=== PATIENT | female | born 1985 | race Caucasian/White ===

== ENCOUNTER 2020-01-29 05:42 | Inpatient (IN) | payer BC ==
[2020-01-29] MEDS ORDERED: Sodium Chloride 0.9% 2.5 ML Syringe FLUSH PRN (05:45)
[2020-01-29] MEDS ORDERED: Oxytocin/0.9 % Sodium Chloride 30 UNIT/500 ML BAG IV SCH (05:45)
[2020-01-29] MEDS ORDERED: ceFAZolin 2 GM in Premix Bag 1 BAG IV ONE (05:45)
[2020-01-29] MEDS ORDERED: Sodium Chloride 0.9% 10 ML SDV IV PRN (05:45)
[2020-01-29] MEDS ORDERED: Sodium Chloride 0.9% 10 ML Syringe FLUSH PRN (05:45)
[2020-01-29] MEDS ORDERED: Citric Acid/Sodium Citrate Solution 30 ML Cup PO ONE (05:45)
[2020-01-29] MEDS ORDERED: Ondansetron 4 MG Tab.DIS PO PRN (05:45)
[2020-01-29] MEDS: Lactated Ringers 1,000 ML IV SCH ×4 (06:00→15:44)
--- NOTE | 2020-01-29 07:37 | PCM.PREANE ---
Preanesthetic Assessment - Anesthesia/Transfusion/Family Hx Anesthesia History: Prior Anesthesia Without Reaction (1x spinal, 1xepidural with conversion) Family History of Anesthesia Reaction: No Transfusion History: No Prior Transfusion(s) Intubation History: Unknown - Review of Systems General: No Symptoms Pulmonary: No Symptoms Cardiovascular: No Symptoms Gastrointestinal: No Symptoms Neurological: No Symptoms Other: Reports: None - Physical Assessment NPO Status Date: 01/28/20 NPO Status Time: 22:00 Height: 5 ft 3 in Weight: 88.451 kg ASA Class: 2 Mental Status: Alert & Oriented x3 Airway Class: Mallampati = 2 Dentition: Reports: Normal Dentition Thyro-Mental Finger Breadths: 3 Mouth Opening Finger Breadths: 3 ROM/Head Extension: Full Lungs: Clear to Auscultation, Normal Respiratory Effort Cardiovascular: Regular Rate, Regular Rhythm - Lab Values: Laboratory Last Values WBC 9.25 K/uL (4.0-11.0) 01/29/20 06:00 RBC 4.02 M/uL (4.30-5.90) L 01/29/20 06:00 Hgb 12.1 g/dL (12.0-16.0) 01/29/20 06:00 Hct 36.6 % (36.0-46.0) 01/29/20 06:00 MCV 91.0 fL (80.0-98.0) 01/29/20 06:00 MCH 30.1 pg (27.0-32.0) 01/29/20 06:00 MCHC 33.1 g/dL (31.0-37.0) 01/29/20 06:00 RDW Std Deviation 43.6 fl (28.0-62.0) 01/29/20 06:00 RDW Coeff of Maurice 13 % (11.0-15.0) 01/29/20 06:00 Plt Count 177 K/uL (150-400) 01/29/20 06:00 MPV 11.70 fL (7.40-12.00) 01/29/20 06:00 Nucleated RBC % 0.0 /100WBC 01/29/20 06:00 Nucleated RBCs # 0 K/uL 01/29/20 06:00 Blood Type O NEGATIVE 01/29/20 06:00 Antibody Screen NEGATIVE 01/29/20 06:00 - Allergies Allergies/Adverse Reactions: Allergies Allergy/AdvReac Type Severity Reaction Status Date / Time No Known Allergies Allergy Verified 01/23/20 08:13 - Acknowledgements Anesthesia Type Planned: Spinal (with Duramorph) PreAnesthesia Questionnaire HEENT History: Reports: None Cardiovascular History: Reports: None Respiratory History: Reports: None Gastrointestinal History: Reports: None Genitourinary History: Reports: None [employer]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: : 3 Para: 2 LMP (Approximate): Musculoskeletal History: Reports: None Neurological History: Reports: None Psychiatric History: Reports: None Endocrine/Metabolic History: Reports: Obesity/BMI 30+ Hematologic History: Reports: None Immunologic History: Reports: None Oncologic (Cancer) History: Reports: None Dermatologic History: Reports: None - Infectious Disease History Infectious Disease History: Reports: Chicken Pox - Past Surgical History Head Surgeries/Procedures: Reports: None HEENT Surgical History: Reports: None Cardiovascular Surgical History: Reports: None Respiratory Surgical History: Reports: None GI Surgical History: Reports: None Female Surgical History: Reports: Section Endocrine Surgical History: Reports: None Neurological Surgical History: Reports: None Musculoskeletal Surgical History: Reports: None Oncologic Surgical History: Reports: None Dermatological Surgical History: Reports: None - SUBSTANCE USE Tobacco Use Status *Q: Never Tobacco User Second Hand Smoke Exposure: No Recreational Drug Use History: No - HOME MEDS Home Medications: Home Meds Pnv No.95/Ferrous Fum/Folic AC [ Vitamin Tablet] 1 tab PO DAILY 01/23/20 [History] - CURRENT (IN HOUSE) MEDS Current Meds: Current Medications Oxytocin/Sodium Chloride (Oxytocin 30 Unit/500 Ml-Ns) 30 unit in 500 mls @ 250 mls/hr IV TITRATE YEISON Lactated Ringer's (Ringers, Lactated) 1,000 mls @ 500 mls/hr IV BOLUS [facility] Last Admin: 01/29/20 07:23 Dose: 500 mls/hr Documented by: Ondansetron HCl (Zofran Odt) 4 mg PO Q6H PRN PRN Reason: Nausea/Vomiting Sodium Chloride (Saline Flush) 10 ml FLUSH ASDIRECTED PRN PRN Reason: Keep Vein Open Sodium Chloride (Saline Flush) 2.5 ml FLUSH ASDIRECTED PRN PRN Reason: Keep Vein Open Sodium Chloride (Normal Saline) 10 ml IV ASDIRECTED PRN PRN Reason: IV Use Discontinued Medications Citric Acid/Sodium Citrate (Bicitra Solution) 30 ml PO ONETIME ONE Stop: 01/29/20 05:46 Cefazolin Sodium/Dextrose 2 gm (/ Premix) 50 mls @ 100 mls/hr IV ONETIME ONE Stop: 01/29/20 06:14
[2020-01-29] MEDS ORDERED: Morphine PF 10 MG/10 ML SDV ONE (07:40)
--- NOTE | 2020-01-29 07:41 | PCM.PREANE ---
Preanesthetic Assessment - Anesthesia/Transfusion/Family Hx Anesthesia History: Prior Anesthesia Without Reaction Transfusion History: No Prior Transfusion(s) - Physical Assessment Height: 1.6 m Weight: 88.451 kg ASA Class: 2 - Lab Values: Laboratory Last Values WBC 9.25 K/uL (4.0-11.0) 01/29/20 06:00 RBC 4.02 M/uL (4.30-5.90) L 01/29/20 06:00 Hgb 12.1 g/dL (12.0-16.0) 01/29/20 06:00 Hct 36.6 % (36.0-46.0) 01/29/20 06:00 MCV 91.0 fL (80.0-98.0) 01/29/20 06:00 MCH 30.1 pg (27.0-32.0) 01/29/20 06:00 MCHC 33.1 g/dL (31.0-37.0) 01/29/20 06:00 RDW Std Deviation 43.6 fl (28.0-62.0) 01/29/20 06:00 RDW Coeff of Maurice 13 % (11.0-15.0) 01/29/20 06:00 Plt Count 177 K/uL (150-400) 01/29/20 06:00 MPV 11.70 fL (7.40-12.00) 01/29/20 06:00 Nucleated RBC % 0.0 /100WBC 01/29/20 06:00 Nucleated RBCs # 0 K/uL 01/29/20 06:00 Blood Type O NEGATIVE 01/29/20 06:00 Antibody Screen NEGATIVE 01/29/20 06:00 - Allergies Allergies/Adverse Reactions: Allergies Allergy/AdvReac Type Severity Reaction Status Date / Time No Known Allergies Allergy Verified 01/23/20 08:13 - Acknowledgements Anesthesia Type Planned: Spinal Pt an Appropriate Candidate for the Planned Anesthesia: Yes Alternatives and Risks of Anesthesia Discussed w Pt/Guardian: Yes Pt/Guardian Understands and Agrees with Anesthesia Plan: Yes PreAnesthesia Questionnaire HEENT History: Reports: None Cardiovascular History: Reports: None Respiratory History: Reports: None Gastrointestinal History: Reports: None Genitourinary History: Reports: None [employer]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: Musculoskeletal History: Reports: None Neurological History: Reports: None Psychiatric History: Reports: None Endocrine/Metabolic History: Reports: Obesity/BMI 30+ Hematologic History: Reports: None Immunologic History: Reports: None Oncologic (Cancer) History: Reports: None Dermatologic History: Reports: None - Infectious Disease History Infectious Disease History: Reports: Chicken Pox - Past Surgical History Head Surgeries/Procedures: Reports: None HEENT Surgical History: Reports: None Cardiovascular Surgical History: Reports: None Respiratory Surgical History: Reports: None GI Surgical History: Reports: None Female Surgical History: Reports: Section Endocrine Surgical History: Reports: None Neurological Surgical History: Reports: None Musculoskeletal Surgical History: Reports: None Oncologic Surgical History: Reports: None Dermatological Surgical History: Reports: None - SUBSTANCE USE Tobacco Use Status *Q: Never Tobacco User Second Hand Smoke Exposure: No Recreational Drug Use History: No - HOME MEDS Home Medications: Home Meds Pnv No.95/Ferrous Fum/Folic AC [ Vitamin Tablet] 1 tab PO DAILY 01/23/20 [History] - CURRENT (IN HOUSE) MEDS Current Meds: Current Medications Oxytocin/Sodium Chloride (Oxytocin 30 Unit/500 Ml-Ns) 30 unit in 500 mls @ 250 mls/hr IV TITRATE YEISON Lactated Ringer's (Ringers, Lactated) 1,000 mls @ 500 mls/hr IV BOLUS YEISON Last Admin: 01/29/20 07:23 Dose: 500 mls/hr Documented by: Ondansetron HCl (Zofran Odt) 4 mg PO Q6H PRN PRN Reason: Nausea/Vomiting Sodium Chloride (Saline Flush) 10 ml FLUSH ASDIRECTED PRN PRN Reason: Keep Vein Open Sodium Chloride (Saline Flush) 2.5 ml FLUSH ASDIRECTED PRN PRN Reason: Keep Vein Open Sodium Chloride (Normal Saline) 10 ml IV ASDIRECTED PRN PRN Reason: IV Use Discontinued Medications Citric Acid/Sodium Citrate (Bicitra Solution) 30 ml PO ONETIME ONE Stop: 01/29/20 05:46 Cefazolin Sodium/Dextrose 2 gm (/ Premix) 50 mls @ 100 mls/hr IV ONETIME ONE Stop: 01/29/20 06:14
[2020-01-29] MEDS ORDERED: ceFAZolin 1 GM Vial ONE (07:54)
[2020-01-29] MEDS ORDERED: Sodium Chloride 0.9% 20 ML ONE (07:54)
[2020-01-29] MEDS ORDERED: Ondansetron 4 MG/2 ML SDV ONE ×2 (07:55→08:31)
[2020-01-29] MEDS ORDERED: Oxytocin 10 Units/1 ML SDV ONE (07:55)
[2020-01-29] MEDS ORDERED: Dexamethasone 4 MG/ML 5 ML MDV ONE (08:15)
[2020-01-29] MEDS ORDERED: Ketorolac 30 MG/ML SDV ONE (08:15)
[2020-01-29] MEDS ORDERED: ePHEDrine 50 MG/ML SDV ONE (08:26)
[2020-01-29] MEDS ORDERED: Octyl 2-Cyanoacrylate 1 Tube ONE (08:33)
[2020-01-29] MEDS ORDERED: Naloxone 0.4 MG/ML Syringe IVPUSH PRN (08:46)
[2020-01-29] MEDS ORDERED: diphenhydrAMINE 50 MG/ML SDV IVPUSH PRN ×2 (08:46→08:56)
[2020-01-29] MEDS ORDERED: Lanolin 100% Cream 7 GM Tube TOP PRN (08:56)
[2020-01-29] MEDS ORDERED: Ondansetron 4 MG/2 ML SDV IVPUSH PRN (08:56)
[2020-01-29] MEDS ORDERED: Bisacodyl 10 MG Supp RECTAL PRN (08:56)
[2020-01-29] MEDS ORDERED: Methylergonovine 0.2 MG/1 ML Amp IM PRN (08:56)
[2020-01-29] MEDS ORDERED: Tranexamic Acid 1,000 MG in Sodium Chloride 0.9% 100 ML IV PRN (08:56)
[2020-01-29] MEDS ORDERED: Misoprostol 200 MCG Tab RECTAL PRN (08:56)
[2020-01-29] MEDS ORDERED: Oxytocin 10 Units/1 ML SDV IM PRN (08:56)
--- NOTE | 2020-01-29 08:56 | PCM.OPNOTE ---
- General Post-Op/Procedure Note Date of Surgery/Procedure: 01/29/20 Operative Procedure(s): repeat low transverse Findings: liveborn male 8/9 weight 3840 grams, normal pelvis. Pre Op Diagnosis: 39 weeks, prior , declines VTOL Post-Op Diagnosis: Same Anesthesia Technique: Spinal Primary Surgeon: Sulema Casillas Anesthesia Provider: Alba Izaguirre [employer] Teacher: Herminio Rosado Pathology: none Fluid Replacement, Intraop: 2,800 EBL in mLs: 500 Complications: None Known Condition: Good
[2020-01-29] MEDS ORDERED: Oxytocin/Lactated Ringers 30 UNIT/500 ML BAG IV SCH (09:00)
--- NOTE | 2020-01-29 09:25 | PCM.POSTAN ---
POST ANESTHESIA ASSESSMENT - MENTAL STATUS Mental Status: Alert, Oriented - RESPIRATORY Respiratory Status: Respiratory Rate WNL, Airway Patent, O2 Saturation Stable - CARDIOVASCULAR CV Status: Pulse Rate WNL, Blood Pressure Stable - GASTROINTESTINAL GI Status: No Symptoms - PAIN Pain Score: 0 - POST OP HYDRATION Hydration Status: Adequate & Stable - OBSERVATIONS Free Text/Narrative:: T 10 level. The patient has no complaints at this time. There were no apparent anesthetic complications. Discharge to floor per criteria.
[2020-01-29] MEDS: Prenatal Multivitamin and Multimineral with Iron Tab PO SCH (10:01)
[2020-01-29] MEDS: Docusate Sodium 100 MG Cap PO SCH ×2 (10:02→21:10)
[2020-01-29] MEDS: Ketorolac 30 MG/ML SDV IVPUSH SCH ×3 (10:02→21:09)
--- NOTE | 2020-01-29 12:17 | OR ---
SURGEON: Sulema Casillas M.D. DATE OF PROCEDURE: 01/29/2020 PREOPERATIVE DIAGNOSES: A 39 intrauterine , prior delivery, declines vaginal trial of labor. POSTOPERATIVE DIAGNOSES: A 39 intrauterine , prior delivery, declines vaginal trial of labor. PROCEDURE: Repeat low transverse section. PRIMARY SURGEON: Sulema Casillas MD ANESTHESIA: Spinal. ESTIMATED BLOOD LOSS: 500 mL. FLUIDS: 2800 mL of crystalloid. FINDINGS: A liveborn male, score of 8 and 9, weighing 3840 g. Normal-appearing uterus, tubes, and ovaries. COMPLICATIONS: None known. DISPOSITION: Mother and baby are in LDR in good condition. BRIEF HISTORY: This is a 34-year-old female. She presents at 39 6/7 weeks gestation with a prior delivery. She declines vaginal trial of labor, and she has reviewed risks of delivery including risk of bleeding; infection; injury to bowel, bladder, blood vessels, ureters, or other organs; risk of thromboembolic event; and risk of anesthesia. Understanding all these risks, she does desire to proceed. DESCRIPTION OF PROCEDURE: With the patient in left tilt position, under adequate spinal analgesia, the abdomen was prepped with chlorhexidine and draped in the usual fashion for abdominal surgery. SCDs were in place. Herman catheter had been placed and 2 g of Ancef IV had been given. After documentation of adequate analgesia, the prior cicatrix was excised and a transverse curvilinear incision was carried through the subcutaneous tissue to the fascia, which was scored transversely in the midline. The fascial incision was extended laterally using sharp and blunt dissection. The fascia was from the underlying rectus muscle using sharp and blunt dissection. The rectus muscles were in the midline. The peritoneum was elevated with hemostat and incised. A finger was placed into the peritoneal cavity. There were no adhesions anteriorly. The bladder was adhesed fairly high onto the uterus with large blood vessels. Therefore, the visceral peritoneum over the lower uterine segment was incised just above this adhesion to push the bladder down out of the field of dissection. The Hector O retractor was then placed. A transverse curvilinear incision was made over the lower uterine segment with a scalpel. A finger was used to enter the amniotic cavity. Clear fluid was noted. The arm and cord were presenting. They were returned to the uterine cavity. The head was then presenting to the incision and was elevated, and with fundal pressure, the was delivered and bulb suctioned by nose and mouth. After 1 minute, the cord was doubly clamped and cut, and the infant was handed to the nurse in attendance at delivery. The was a liveborn male, score of 8 and 9, weighing 3840 g. Cord blood was collected for cord ABGs as well as routine cord blood sampling. Pitocin was initiated after delivery of the infant to assist with delivery of the placenta, which was delivered with fundal pressure. The cervix was opened with ring forceps. The uterus was cleaned with a dry laparotomy tape. The uterine incision was closed with a running lock suture of 0 Polysorb followed by an imbricating layer of 0 Polysorb. Two additional [id number] sutures were placed for complete hemostasis. Tubes and ovaries were inspected. The posterior cul-de-sac, paracolic gutters were cleaned with a wet laparotomy tape and the uterine incision was again inspected, it remained hemostatic. Therefore, the rectus muscle and peritoneum were loosely approximated in the midline using a running mattress suture of 0 Polysorb and the posterior aspect of the fascia was inspected and was hemostatic. The fascial incision was closed with running suture of 0 Polysorb. Subcutaneous tissue was irrigated. Any areas of bleeding that were noted were cauterized. Skin was closed with running subcuticular suture of 3-0 Monocryl and Dermabond. Final sponge, needle, and instrument counts were reported as correct. There were no known complications. Mother and baby remained in LDR and in good condition. DARYL / CAPRICE /[id number]
[2020-01-30] MEDS: Ketorolac 30 MG/ML SDV IVPUSH SCH ×2 (03:40→09:25)
--- NOTE | 2020-01-30 09:06 | PCM48HPAN ---
Post Anesthesia Note - EVALUATION WITHIN 48HRS OF ANESTHETIC Vital Signs in Normal Range: Yes Patient Participated in Evaluation: Yes Respiratory Function Stable: Yes Airway Patent: Yes Cardiovascular Function Stable: Yes Hydration Status Stable: Yes Pain Control Satisfactory: Yes Nausea and Vomiting Control Satisfactory: Yes Mental Status Recovered: Yes Vital Signs: Last Vital Signs Temp 36.4 C 01/30/20 03:20 Pulse 76 01/30/20 07:00 Resp 15 01/30/20 07:00 BP 122/74 01/30/20 03:20 Pulse Ox 97 01/30/20 07:00 - COMMENTS/OBSERVATIONS Free Text/Narrative:: ambulating without difficulty, reports full return of strength and sensation to BLE. Denies nausea, reports adequate analgesia with pain 4-5/10.
[2020-01-30] MEDS: Docusate Sodium 100 MG Cap PO SCH ×3 (09:24→22:27)
--- NOTE | 2020-01-30 10:18 | PCM.PNPP ---
- General Info Date of Service: 01/30/20 Functional Status: Reports: Pain Controlled, Tolerating Diet, Ambulating, Urinating, Other - Review of Systems General: Reports: No Symptoms HEENT: Reports: No Symptoms Pulmonary: Reports: No Symptoms Cardiovascular: Reports: No Symptoms Gastrointestinal: Reports: No Symptoms Genitourinary: Reports: No Symptoms Musculoskeletal: Reports: No Symptoms Skin: Reports: No Symptoms Neurological: Reports: No Symptoms Psychiatric: Reports: No Symptoms - Patient Data Vital Signs - Most Recent: Last Vital Signs Temp 36.7 C 01/30/20 08:00 Pulse 89 01/30/20 09:00 Resp 18 01/30/20 09:00 BP 115/73 01/30/20 08:00 Pulse Ox 93 L 01/30/20 09:00 Weight - Most Recent: 88.451 kg I&O - Last 24 Hours: Intake & Output 01/29/20 01/30/20 01/30/20 22:59 06:59 14:59 Intake Total 2350 2000 Output Total 840 2900 Balance 1510 -900 Lab Results - Last 24 Hours: Laboratory Results - last 24 hr 01/29/20 01/30/20 Range/Units 09:30 05:34 Hgb 9.4 L (12.0-16.0) g/dL Hct 28.6 L (36.0-46.0) % Screen NEGATIVE (NEGATIVE) RhIG Candidate? YES Rhogam Indicated YES, BABY RH POS H Med Orders - Current: Current Medications Bisacodyl (Dulcolax) 10 mg RECTAL ONETIME PRN PRN Reason: Constipation Diphenhydramine HCl (Benadryl) 25 mg IVPUSH Q6H PRN PRN Reason: Itching or Nausea Docusate Sodium (Colace) 100 mg PO BID [facility] Last Admin: 01/30/20 09:24 Dose: 100 mg Documented by: Emollient Ointment (Lansinoh Hpa) 0 gm TOP ASDIRECTED PRN PRN Reason: Sore Nipples Oxytocin/Sodium Chloride (Oxytocin 30 Unit/500 Ml-Ns) 30 unit in 500 mls @ 250 mls/hr IV TITRATE YEISON Lactated Ringer's (Ringers, Lactated) 1,000 mls @ 500 mls/hr IV BOLUS [facility] Last Infusion: 01/29/20 19:30 Dose: Infused Documented by: Lactated Ringer's (Ringers, Lactated) 1,000 mls @ 125 mls/hr IV ASDIRECTED [facility] Last Admin: 01/29/20 15:44 Dose: 125 mls/hr Documented by: Oxytocin/Lactated Ringer's (Pitocin In Lr 30 Units/500 Ml) 30 unit in 500 mls @ 999 mls/hr IV TITRATE YEISON; Protocol Tranexamic Acid 1,000 mg/ (Sodium Chloride) 110 mls @ 660 mls/hr IV ONETIME PRN PRN Reason: Bleeding Ibuprofen (Motrin) 800 mg PO Q8H PRN PRN Reason: mild pain or fever Methylergonovine Maleate (Methergine) 0.2 mg IM ONETIME PRN PRN Reason: Excessive Vaginal Bleeding Misoprostol (Cytotec) 1,000 mcg RECTAL ONETIME PRN PRN Reason: excessive bleeding Ondansetron HCl (Zofran Odt) 4 mg PO Q6H PRN PRN Reason: Nausea/Vomiting Ondansetron HCl (Zofran) 4 mg IVPUSH Q4H PRN PRN Reason: Nausea/Vomiting Oxycodone/Acetaminophen (Percocet 325-5 Mg) 1 tab PO Q4H PRN PRN Reason: Pain (moderate 4-6) Oxycodone/Acetaminophen (Percocet 325-5 Mg) 2 tab PO Q4H PRN PRN Reason: Pain (moderate 4-6) Oxytocin (Pitocin) 10 unit IM ASDIRECTED PRN PRN Reason: Excessive Vaginal Bleeding Prenat Multivit/Kupreanof/Iron/Folic Ac ( Mtr) 1 each PO DAILY [facility] Last Admin: 01/29/20 10:01 Dose: Not Given Documented by: Sodium Chloride (Saline Flush) 10 ml FLUSH ASDIRECTED PRN PRN Reason: Keep Vein Open Sodium Chloride (Saline Flush) 2.5 ml FLUSH ASDIRECTED PRN PRN Reason: Keep Vein Open Sodium Chloride (Normal Saline) 10 ml IV ASDIRECTED PRN PRN Reason: IV Use Discontinued Medications Cefazolin Sodium (Ancef) Confirm Administered Dose 2 gm .ROUTE .STK-MED ONE Stop: 01/29/20 07:55 Citric Acid/Sodium Citrate (Bicitra Solution) 30 ml PO ONETIME ONE Stop: 01/29/20 05:46 Last Admin: 01/29/20 09:01 Dose: Not Given Documented by: Dexamethasone (Dexamethasone) Confirm Administered Dose 20 mg .ROUTE .STK-MED ONE Stop: 01/29/20 08:16 Diphenhydramine HCl (Benadryl) 25 mg IVPUSH Q4H PRN PRN Reason: Itching Stop: 01/30/20 08:47 Last Admin: 01/30/20 01:10 Dose: 25 mg Documented by: Ephedrine Sulfate (Ephedrine Sulfate) Confirm Administered Dose 50 mg .ROUTE .STK-MED ONE Stop: 01/29/20 08:27 Cefazolin Sodium/Dextrose 2 gm (/ Premix) 50 mls @ 100 mls/hr IV ONETIME ONE Stop: 01/29/20 06:14 Last Admin: 01/29/20 09:01 Dose: Not Given Documented by: Sodium Chloride (Normal Saline) Confirm Administered Dose 20 mls @ as directed .ROUTE .STK-MED ONE Stop: 01/29/20 07:55 Ketorolac Tromethamine (Toradol) Confirm Administered Dose 30 mg .ROUTE .STK-MED ONE Stop: 01/29/20 08:16 Ketorolac Tromethamine (Toradol) 30 mg IVPUSH Q6H YEISON Stop: 01/30/20 09:01 Last Admin: 01/30/20 09:25 Dose: 30 mg Documented by: Morphine Sulfate (Duramorph Pf) Confirm Administered Dose 10 mg .ROUTE .STK-MED ONE Stop: 01/29/20 07:41 Naloxone HCl (Narcan) 0.1 mg IVPUSH ONETIME PRN PRN Reason: Respiratory Depression Stop: 01/30/20 08:47 Octyl Cyanoacrylate (Dermabond Advance) Confirm Administered Dose 1 applic .ROUTE .STK-MED ONE Stop: 01/29/20 08:34 Ondansetron HCl (Zofran) Confirm Administered Dose 4 mg .ROUTE .STK-MED ONE Stop: 01/29/20 07:56 Ondansetron HCl (Zofran) Confirm Administered Dose 4 mg .ROUTE .STK-MED ONE Stop: 01/29/20 08:32 Oxytocin (Pitocin) Confirm Administered Dose 30 unit .ROUTE .STK-MED ONE Stop: 01/29/20 07:56 - Interaction Infant Disposition, : in Room with Family Interaction: Holding Infant Feeding: Breastfed ; Nursed Well Support Person: - Recovery Exam Fundal Tone: Firm Fundal Level: At Umbilicus Fundal Placement: Midline Lochia Amount: Scant Lochia Color: Rubra/Red Episiotomy/Laceration: None Urinary Elimination: Indwelling Catheter - Exam General: Alert Neck: Supple Lungs: Normal Respiratory Effort GI/Abdominal Exam: Soft, Non-Tender Extremities: Non-Tender, No Pedal Edema, Normal Capillary Refill Skin: Warm, Dry, Intact Wound/Incisions: Dressing Dry and Intact Neurological: No New Focal Deficit - Problem List & Annotations (1) delivery delivered SNOMED Code(s): 342898635 Code(s): O82 - ENCOUNTER FOR DELIVERY WITHOUT INDICATION Status: Acute Current Visit: Yes (2) Maternal care for scar from previous delivery SNOMED Code(s): 116782602, 889378908 Code(s): O34.219 - MATERNAL CARE FOR UNSP TYPE SCAR FROM PREVIOUS DEL Status: Acute Current Visit: Yes Qualifiers: Previous scar type: low transverse Qualified Code(s): O34.211 - Maternal care for low transverse scar from previous delivery - Problem List Review Problem List Initiated/Reviewed/Updated: Yes - My Orders Last 24 Hours: My Active Orders 01/29/20 09:30 SCREEN [BBK] Routine RH IMMUNE GLOBULIN [BBK] Routine RHOGAM, [RHIG WORKUP, ] [BBK] Routine 01/29/20 Lunch Regular Diet [DIET] - Assessment Assessment:: POD#1 after repeat low transverse , stable, minimal lochia, tolerating diet. - Plan Plan:: Continue postop care
[2020-01-30] MEDS: Acetaminophen/oxyCODONE 325-5 MG Tab PO PRN ×2 (15:01→19:45)
[2020-01-30] MEDS: Prenatal Multivitamin and Multimineral with Iron Tab PO SCH ×2 (15:03→16:30)
[2020-01-30] MEDS: Ibuprofen 800 MG Tab PO PRN (19:46)
[2020-01-31] MEDS: Acetaminophen/oxyCODONE 325-5 MG Tab PO PRN ×5 (01:12→19:25)
[2020-01-31] MEDS: Ibuprofen 800 MG Tab PO PRN ×3 (05:12→23:05)
--- NOTE | 2020-01-31 07:47 | PCM.PNPP ---
- General Info Date of Service: 01/31/20 Functional Status: Reports: Pain Controlled, Tolerating Diet, Ambulating, Urinating - Review of Systems General: Reports: No Symptoms HEENT: Reports: No Symptoms Pulmonary: Reports: No Symptoms Cardiovascular: Reports: No Symptoms Gastrointestinal: Reports: No Symptoms Genitourinary: Reports: No Symptoms Musculoskeletal: Reports: No Symptoms Skin: Reports: No Symptoms Neurological: Reports: No Symptoms Psychiatric: Reports: No Symptoms - General Info Date of Service: 01/31/20 - Patient Data Vital Signs - Most Recent: Last Vital Signs Temp 35.9 C L 01/31/20 07:31 Pulse 72 01/31/20 07:31 Resp 20 01/31/20 07:31 BP 115/66 01/31/20 07:31 Pulse Ox 96 01/31/20 07:31 Weight - Most Recent: 88.451 kg I&O - Last 24 Hours: Intake & Output 01/30/20 01/31/20 01/31/20 22:59 06:59 14:59 Output Total 900 Balance -900 Med Orders - Current: Current Medications Bisacodyl (Dulcolax) 10 mg RECTAL ONETIME PRN PRN Reason: Constipation Diphenhydramine HCl (Benadryl) 25 mg IVPUSH Q6H PRN PRN Reason: Itching or Nausea Docusate Sodium (Colace) 100 mg PO BID [facility] Last Admin: 01/30/20 22:27 Dose: Not Given Documented by: Emollient Ointment (Lansinoh Hpa) 0 gm TOP ASDIRECTED PRN PRN Reason: Sore Nipples Oxytocin/Sodium Chloride (Oxytocin 30 Unit/500 Ml-Ns) 30 unit in 500 mls @ 250 mls/hr IV TITRATE YEISON Lactated Ringer's (Ringers, Lactated) 1,000 mls @ 500 mls/hr IV BOLUS [facility] Last Infusion: 01/29/20 19:30 Dose: Infused Documented by: Lactated Ringer's (Ringers, Lactated) 1,000 mls @ 125 mls/hr IV ASDIRECTED [facility] Last Admin: 01/29/20 15:44 Dose: 125 mls/hr Documented by: Oxytocin/Lactated Ringer's (Pitocin In Lr 30 Units/500 Ml) 30 unit in 500 mls @ 999 mls/hr IV TITRATE YEISON; Protocol Tranexamic Acid 1,000 mg/ (Sodium Chloride) 110 mls @ 660 mls/hr IV ONETIME PRN PRN Reason: Bleeding Ibuprofen (Motrin) 800 mg PO Q8H PRN PRN Reason: mild pain or fever Last Admin: 01/31/20 05:12 Dose: 800 mg Documented by: Methylergonovine Maleate (Methergine) 0.2 mg IM ONETIME PRN PRN Reason: Excessive Vaginal Bleeding Misoprostol (Cytotec) 1,000 mcg RECTAL ONETIME PRN PRN Reason: excessive bleeding Ondansetron HCl (Zofran Odt) 4 mg PO Q6H PRN PRN Reason: Nausea/Vomiting Ondansetron HCl (Zofran) 4 mg IVPUSH Q4H PRN PRN Reason: Nausea/Vomiting Oxycodone/Acetaminophen (Percocet 325-5 Mg) 1 tab PO Q4H PRN PRN Reason: Pain (moderate 4-6) Last Admin: 01/31/20 05:11 Dose: 1 tab Documented by: Oxycodone/Acetaminophen (Percocet 325-5 Mg) 2 tab PO Q4H PRN PRN Reason: Pain (moderate 4-6) Last Admin: 01/31/20 01:12 Dose: 2 tab Documented by: Oxytocin (Pitocin) 10 unit IM ASDIRECTED PRN PRN Reason: Excessive Vaginal Bleeding Prenat Multivit/[place]/Iron/Folic Ac ( Mtr) 1 each PO DAILY [facility] Last Admin: 01/30/20 15:03 Dose: 1 each Documented by: Sodium Chloride (Saline Flush) 10 ml FLUSH ASDIRECTED PRN PRN Reason: Keep Vein Open Sodium Chloride (Saline Flush) 2.5 ml FLUSH ASDIRECTED PRN PRN Reason: Keep Vein Open Sodium Chloride (Normal Saline) 10 ml IV ASDIRECTED PRN PRN Reason: IV Use Discontinued Medications Cefazolin Sodium (Ancef) Confirm Administered Dose 2 gm .ROUTE .STK-MED ONE Stop: 01/29/20 07:55 Citric Acid/Sodium Citrate (Bicitra Solution) 30 ml PO ONETIME ONE Stop: 01/29/20 05:46 Last Admin: 01/29/20 09:01 Dose: Not Given Documented by: Dexamethasone (Dexamethasone) Confirm Administered Dose 20 mg .ROUTE .STK-MED ONE Stop: 01/29/20 08:16 Diphenhydramine HCl (Benadryl) 25 mg IVPUSH Q4H PRN PRN Reason: Itching Stop: 01/30/20 08:47 Last Admin: 01/30/20 01:10 Dose: 25 mg Documented by: Ephedrine Sulfate (Ephedrine Sulfate) Confirm Administered Dose 50 mg .ROUTE .STK-MED ONE Stop: 01/29/20 08:27 Cefazolin Sodium/Dextrose 2 gm (/ Premix) 50 mls @ 100 mls/hr IV ONETIME ONE Stop: 01/29/20 06:14 Last Admin: 01/29/20 09:01 Dose: Not Given Documented by: Sodium Chloride (Normal Saline) Confirm Administered Dose 20 mls @ as directed .ROUTE .ST-MED ONE Stop: 01/29/20 07:55 Ketorolac Tromethamine (Toradol) Confirm Administered Dose 30 mg .ROUTE .ST-MED ONE Stop: 01/29/20 08:16 Ketorolac Tromethamine (Toradol) 30 mg IVPUSH Q6H [facility] Stop: 01/30/20 09:01 Last Admin: 01/30/20 09:25 Dose: 30 mg Documented by: Morphine Sulfate (Duramorph Pf) Confirm Administered Dose 10 mg .ROUTE .ST-MED ONE Stop: 01/29/20 07:41 Naloxone HCl (Narcan) 0.1 mg IVPUSH ONETIME PRN PRN Reason: Respiratory Depression Stop: 01/30/20 08:47 Octyl Cyanoacrylate (Dermabond Advance) Confirm Administered Dose 1 applic .ROUTE .ST-MED ONE Stop: 01/29/20 08:34 Last Admin: 01/30/20 22:25 Dose: Not Given Documented by: Ondansetron HCl (Zofran) Confirm Administered Dose 4 mg .ROUTE .STK-MED ONE Stop: 01/29/20 07:56 Ondansetron HCl (Zofran) Confirm Administered Dose 4 mg .ROUTE .STK-MED ONE Stop: 01/29/20 08:32 Oxytocin (Pitocin) Confirm Administered Dose 30 unit .ROUTE .STK-MED ONE Stop: 01/29/20 07:56 Prenat Multivit/Pottery Machine [employer]/Iron/Folic Ac ( Mtr) 1 each PO DAILY [facility] Last Admin: 01/30/20 16:30 Dose: Not Given Documented by: - Interaction Infant Disposition, : [place] in Room with Family Infant Interaction: Holding Infant Feeding: Breastfed ; Nursed Well Support Person: - Recovery Exam Fundal Tone: Firm Fundal Level: 1 Fingerbreadths Below Umbilicus Fundal Placement: Midline Lochia Amount: Scant Lochia Color: Rubra/Red Perineum Description: Intact, Minimal Bruising/Swelling Episiotomy/Laceration: None Bladder Status: Voiding Urinary Elimination: Indwelling Catheter - Exam General: Alert, Oriented Neck: Supple Lungs: Normal Respiratory Effort GI/Abdominal Exam: Soft, Non-Tender, No Distention Extremities: Non-Tender, No Pedal Edema, Normal Capillary Refill Wound/Incisions: Healing Well Neurological: No New Focal Deficit Psy/Mental Status: Alert, Normal Affect, Normal Mood - Problem List & Annotations (1) delivery delivered SNOMED Code(s): 618382231 Code(s): O82 - ENCOUNTER FOR DELIVERY WITHOUT INDICATION Status: Acute Current Visit: Yes (2) Maternal care for scar from previous delivery SNOMED Code(s): 439213033, 661888561 Code(s): O34.219 - MATERNAL CARE FOR UNSP TYPE SCAR FROM PREVIOUS DEL Status: Acute Current Visit: Yes Qualifiers: Previous scar type: low transverse Qualified Code(s): O34.211 - Maternal care for low transverse scar from previous delivery - Problem List Review Problem List Initiated/Reviewed/Updated: Yes - My Orders Last 24 Hours: My Active Orders 01/30/20 13:45 Vit/FA/Fe Fumarate/Se [ MTR] 1 each PO DAILY - Assessment Assessment:: POD#2 after repeat low transverse , stable, minimal lochia, tolerating diet. is going well. - Plan Plan:: Continue care, anticipate discharge tomorrow.
[2020-01-31] MEDS: Prenatal Multivitamin and Multimineral with Iron Tab PO SCH (08:48)
[2020-01-31] MEDS: Docusate Sodium 100 MG Cap PO SCH ×2 (08:48→21:29)
[2020-02-01] MEDS: Acetaminophen/oxyCODONE 325-5 MG Tab PO PRN ×2 (00:20→09:02)
--- NOTE | 2020-02-01 08:43 | PCM.PNPP ---
- General Info Date of Service: 02/01/20 Functional Status: Reports: Pain Controlled, Tolerating Diet, Ambulating, Urinating, Other (had bowel movement) - Review of Systems General: Reports: No Symptoms HEENT: Reports: No Symptoms Pulmonary: Reports: No Symptoms Cardiovascular: Reports: No Symptoms Gastrointestinal: Reports: No Symptoms Genitourinary: Reports: No Symptoms Musculoskeletal: Reports: No Symptoms Skin: Reports: No Symptoms Neurological: Reports: No Symptoms Psychiatric: Reports: No Symptoms - General Info Date of Service: 02/01/20 - Patient Data Vital Signs - Most Recent: Last Vital Signs Temp 36.4 C 02/01/20 04:00 Pulse 75 02/01/20 04:00 Resp 20 02/01/20 04:00 BP 120/78 02/01/20 04:00 Pulse Ox 99 02/01/20 04:00 Weight - Most Recent: 88.451 kg Lab Results - Last 24 Hours: Laboratory Results - last 24 hr 01/29/20 01/29/20 Range/Units 06:00 09:30 RPR Non-Reac (Non-Reac) Screen NEGATIVE (NEGATIVE) RhIG Candidate? YES Rhogam Indicated YES, BABY RH POS H Med Orders - Current: Current Medications Bisacodyl (Dulcolax) 10 mg RECTAL ONETIME PRN PRN Reason: Constipation Diphenhydramine HCl (Benadryl) 25 mg IVPUSH Q6H PRN PRN Reason: Itching or Nausea Docusate Sodium (Colace) 100 mg PO BID [facility] Last Admin: 01/31/20 21:29 Dose: 100 mg Documented by: Emollient Ointment (Lansinoh Hpa) 0 gm TOP ASDIRECTED PRN PRN Reason: Sore Nipples Oxytocin/Sodium Chloride (Oxytocin 30 Unit/500 Ml-Ns) 30 unit in 500 mls @ 250 mls/hr IV TITRATE YE[facility] Lactated Ringer's (Ringers, Lactated) 1,000 mls @ 500 mls/hr IV BOLUS [facility] Last Infusion: 01/29/20 19:30 Dose: Infused Documented by: Lactated Ringer's (Ringers, Lactated) 1,000 mls @ 125 mls/hr IV ASDIRECTED [facility] Last Admin: 01/29/20 15:44 Dose: 125 mls/hr Documented by: Oxytocin/Lactated Ringer's (Pitocin In Lr 30 Units/500 Ml) 30 unit in 500 mls @ 999 mls/hr IV TITRATE YEISON; Protocol Tranexamic Acid 1,000 mg/ (Sodium Chloride) 110 mls @ 660 mls/hr IV ONETIME PRN PRN Reason: Bleeding Ibuprofen (Motrin) 800 mg PO Q8H PRN PRN Reason: mild pain or fever Last Admin: 01/31/20 23:05 Dose: 800 mg Documented by: Methylergonovine Maleate (Methergine) 0.2 mg IM ONETIME PRN PRN Reason: Excessive Vaginal Bleeding Misoprostol (Cytotec) 1,000 mcg RECTAL ONETIME PRN PRN Reason: excessive bleeding Ondansetron HCl (Zofran Odt) 4 mg PO Q6H PRN PRN Reason: Nausea/Vomiting Ondansetron HCl (Zofran) 4 mg IVPUSH Q4H PRN PRN Reason: Nausea/Vomiting Oxycodone/Acetaminophen (Percocet 325-5 Mg) 1 tab PO Q4H PRN PRN Reason: Pain (moderate 4-6) Last Admin: 02/01/20 00:20 Dose: 1 tab Documented by: Oxycodone/Acetaminophen (Percocet 325-5 Mg) 2 tab PO Q4H PRN PRN Reason: Pain (moderate 4-6) Last Admin: 01/31/20 19:25 Dose: 2 tab Documented by: Oxytocin (Pitocin) 10 unit IM ASDIRECTED PRN PRN Reason: Excessive Vaginal Bleeding Prenat Multivit/[place]/Iron/Folic Ac ( Mtr) 1 each PO DAILY [facility] Last Admin: 01/31/20 08:48 Dose: 1 each Documented by: Sodium Chloride (Saline Flush) 10 ml FLUSH ASDIRECTED PRN PRN Reason: Keep Vein Open Sodium Chloride (Saline Flush) 2.5 ml FLUSH ASDIRECTED PRN PRN Reason: Keep Vein Open Sodium Chloride (Normal Saline) 10 ml IV ASDIRECTED PRN PRN Reason: IV Use Discontinued Medications Cefazolin Sodium (Ancef) Confirm Administered Dose 2 gm .ROUTE .STK-MED ONE Stop: 01/29/20 07:55 Citric Acid/Sodium Citrate (Bicitra Solution) 30 ml PO ONETIME ONE Stop: 01/29/20 05:46 Last Admin: 01/29/20 09:01 Dose: Not Given Documented by: Dexamethasone (Dexamethasone) Confirm Administered Dose 20 mg .ROUTE .STK-MED ONE Stop: 01/29/20 08:16 Diphenhydramine HCl (Benadryl) 25 mg IVPUSH Q4H PRN PRN Reason: Itching Stop: 01/30/20 08:47 Last Admin: 01/30/20 01:10 Dose: 25 mg Documented by: Ephedrine Sulfate (Ephedrine Sulfate) Confirm Administered Dose 50 mg .ROUTE .STK-MED ONE Stop: 01/29/20 08:27 Cefazolin Sodium/Dextrose 2 gm (/ Premix) 50 mls @ 100 mls/hr IV ONETIME ONE Stop: 01/29/20 06:14 Last Admin: 01/29/20 09:01 Dose: Not Given Documented by: Sodium Chloride (Normal Saline) Confirm Administered Dose 20 mls @ as directed .ROUTE .STK-MED ONE Stop: 01/29/20 07:55 Ketorolac Tromethamine (Toradol) Confirm Administered Dose 30 mg .ROUTE .STK-MED ONE Stop: 01/29/20 08:16 Ketorolac Tromethamine (Toradol) 30 mg IVPUSH Q6H [facility] Stop: 01/30/20 09:01 Last Admin: 01/30/20 09:25 Dose: 30 mg Documented by: Morphine Sulfate (Duramorph Pf) Confirm Administered Dose 10 mg .ROUTE .STK-MED ONE Stop: 01/29/20 07:41 Naloxone HCl (Narcan) 0.1 mg IVPUSH ONETIME PRN PRN Reason: Respiratory Depression Stop: 01/30/20 08:47 Octyl Cyanoacrylate (Dermabond Advance) Confirm Administered Dose 1 applic .ROUTE .STK-MED ONE Stop: 01/29/20 08:34 Last Admin: 01/30/20 22:25 Dose: Not Given Documented by: Ondansetron HCl (Zofran) Confirm Administered Dose 4 mg .ROUTE .STK-MED ONE Stop: 01/29/20 07:56 Ondansetron HCl (Zofran) Confirm Administered Dose 4 mg .ROUTE .STK-MED ONE Stop: 01/29/20 08:32 Oxytocin (Pitocin) Confirm Administered Dose 30 unit .ROUTE .STK-MED ONE Stop: 01/29/20 07:56 Prenat Multivit/[employer]/Iron/Folic Ac ( Mtr) 1 each PO DAILY [facility] Last Admin: 01/30/20 16:30 Dose: Not Given Documented by: - Infant Interaction Infant Disposition, : in Room with Family Infant Interaction: Holding Feeding: Breastfed Infant; Nursed Well Support Person: - Recovery Exam Fundal Tone: Firm Fundal Level: 2 Fingerbreadths Below Umbilicus Fundal Placement: Midline Lochia Amount: Scant Lochia Color: Rubra/Red Perineum Description: Intact, Minimal Bruising/Swelling Episiotomy/Laceration: None Bladder Status: Voiding Urinary Elimination: Voided - Exam General: Alert, Oriented Lungs: Normal Respiratory Effort GI/Abdominal Exam: Soft, Non-Tender, No Distention Extremities: Normal Inspection, Non-Tender, No Pedal Edema Skin: Warm, Dry, Intact Wound/Incisions: Healing Well (small area of bruising inferior to incision) Psy/Mental Status: Alert, Normal Affect, Normal Mood - Problem List & Annotations (1) delivery delivered SNOMED Code(s): 295398603 Code(s): O82 - ENCOUNTER FOR DELIVERY WITHOUT INDICATION Status: Acute Current Visit: Yes (2) Maternal care for scar from previous delivery SNOMED Code(s): 977795301, 523359994 Code(s): O34.219 - MATERNAL CARE FOR UNSP TYPE SCAR FROM PREVIOUS DEL Status: Acute Current Visit: Yes Qualifiers: Previous scar type: low transverse Qualified Code(s): O34.211 - Maternal care for low transverse scar from previous delivery - Problem List Review Problem List Initiated/Reviewed/Updated: Yes - Assessment Assessment:: POD#3 after repeat low transverse , stable, minimal lochia, tolerating diet. is going well. Had bowel movement, would like to be discharged today. - Plan Plan:: Discharge instructions reviewed.
[2020-02-01] MEDS: Docusate Sodium 100 MG Cap PO SCH (08:58)
[2020-02-01] MEDS: Prenatal Multivitamin and Multimineral with Iron Tab PO SCH (08:58)
[2020-02-01] MEDS: Ibuprofen 800 MG Tab PO PRN (09:02)
[2020-02-01 09:58] VITALS: BP 118/66; PULSE 82
== END 2020-02-01 12:03 | disposition home or self-care (01) | DRG 540 ==
LOC: MW.OB 05:42
PROVIDERS: ADMIT Obstetrics & Gynecology; ATTEND Obstetrics & Gynecology
PROC: 10D00Z1 Extraction of Products of Conception, Low, Open Approach (ICD-10-PCS; principal; 2020-01-29)
PROC: 3E0234Z Introduction of Serum, Toxoid and Vaccine into Muscle, Percutaneous Approach (ICD-10-PCS; 2020-01-31)
DX: O34.211 Maternal care for low transverse scar from previous cesarean delivery (principal); Z37.0 Single live birth; Z3A.39 39 weeks gestation of pregnancy; O26.893 Other specified pregnancy related conditions, third trimester; Z67.41 Type O blood, Rh negative
CPT/HCPCS: 01961; 36415; 59025; 82803; 85014; 85018; 85027; 85460; 86592; 86850; 86900; 86901; A9270-GY; J0690; J1100; J1200; J1885; J2270; J2405; J2590; J2792; J7120

== ENCOUNTER 2020-09-21 10:54 | Emergency (ER) | payer BC ==
--- NOTE | 2020-09-21 11:53 | EDM.PDOC ---
ED HPI GENERAL MEDICAL PROBLEM - General Chief Complaint: Skin Complaint Stated Complaint: MASTITIS Time Seen by Provider: 09/21/20 11:29 Source of Information: Reports: Patient History Limitations: Reports: No Limitations - History of Present Illness INITIAL COMMENTS - FREE TEXT/NARRATIVE: HISTORY AND PHYSICAL: History of present illness: The patient is a 35-year-old female who reports to the emergency room with complaints of bread redness and tenderness which started this morning. The patient is breast-feeding her 8-month-old child. She states that she is feeling achy and is experienced chills. She states that she took 2 Advil this morning. Patient stated that she had the same thing on Mother's Day and it turned out to be mastitis. Patient denies any headache, change in vision, syncope or near syncope. Denies any chest pain, back pain, shortness of breath or cough. Denies any abdominal pain, nausea, vomiting, diarrhea, constipation or dysuria. Has not noted any blood in urine or stool. Patient has been eating and drinking appropriately. Review of systems: As per history of present illness and below otherwise all systems reviewed and negative. Past medical history: As per history of present illness and as reviewed below otherwise noncontributory. Surgical history: As per history of present illness and as reviewed below otherwise noncontributory. Social history: See social history for further information Family history: As per history of present illness and as reviewed below otherwise noncontributory. Physical exam: General: Well developed and well nourished. Alert and orientated x 3. Nontoxic in appearance and in no acute distress. Vital signs are stable and have been reviewed by me. Nursing notes were reviewed. HEENT: Atraumatic, normocephalic, pupils equal and reactive bilaterally, negative for conjunctival pallor or scleral icterus, mucous membranes moist, TMs normal bilaterally, throat clear, neck supple, nontender, trachea midline. No drooling or trismus noted. No meningeal signs. No hot potato voice noted. Lungs: Clear to auscultation bilaterally. No wheezes, rales, or rhonchi. Chest nontender. Normal work of breathing, no accessory muscles used. Heart: S1S2, regular rate and rhythm without overt murmur, gallops, or rubs. No JVD. No peripheral edema Abdomen: Soft, nondistended, nontender. Normoactive bowel sounds. Negative for masses or costovertebral tenderness. Skin: Left breast with erythema, warmth and tenderness. Skin warm & dry. No lesions or rashes noted. Hematologic: No petechiae or purpra. Mucosa appropriate color and normal nail bed color and refill. Extremities: Atraumatic, moves all extremities per self without difficulty or deficits, negative for cords or calf pain. Neurovascular unremarkable. Neuro: Awake, alert, oriented. Cranial nerves II through XII unremarkable. Cerebellum unremarkable. Motor and sensory unremarkable throughout. Exam nonfocal. Psychiatric: Mood and affect are appropriate. Normal thought process. Answering questions appropriately. Notes: *This patient was seen and evaluated during the 2019 SARS-CoV-2 novel coronavirus pandemic period. Community viral transmission is ongoing at time of this encounter and the emergency department is operating under pandemic response procedures. Stated above the patient is a 35-year-old female who presents with right sided breast tenderness, warmth and redness. The patient states that this is just like her mastitis that she had on Mother's Day. Upon examination the patient does have mastitis and she is breast-feeding. I educated the patient on risk factors associated with breast-feeding and mastitis. I will start the patient on an Dicloxacillin 500 mg every 6 hours for 10 days as this is the first line antibiotic for breast-feeding with infant safety in mind. The patient is agreeable with the discharge plan I have talked with the patient about today's findings, in addition to providing specific details for plan of care. Reassessment at the time of disposition demonstrates that the patient is in no acute distress. The patient is stable for discharge, counseling was provided and we discussed in great detail signs and symptoms that would prompt them to return to the Emergency Department. Medication, follow up and supportive care measures were reviewed and discussed. Voices understanding and is agreeable to plan of care. Denies any further questions or concerns at this time. Prescription:Dicloxacillin 500 mg every 6 hours for 10 days Impression: Mastitis right breast Plan: 1. You were evaluated today on an emergent basis. Your complaints of right breast pain and redness was evaluated and found to be mastitis. Risk factors for mastitis typically result in prolonged engorgement or poor drainage. Such as, Partial blockage of milk duct; reduced drainage results in stagnant milk distal to the obstruction, Oversupply of milk, Infrequent feedings, Nipple excoriation or cracking, Rapid weaning, Illness in mother or baby, Maternal stress or excessive fatigue, Maternal malnutrition. The breast feeding Society guidelines recommend using a probiotic on a daily basis prevention. You can try breast massage and warm daily. Try working into your schedule. I am prescribing Dicloxacillin 500 mg every 6 hours for 10 days as this is the first line antibiotic for breast-feeding with infant safety in mind. 2. You can alternate Tylenol and ibuprofen as needed for pain and fever management. 3. We encourage you to follow up with your primary care provider and/or recommended specialist in the next few days for re-evaluation and further care/management. 4. If your symptoms should worsen, new symptoms develop or any of the signs and symptoms we discussed should arise please return to the emergency room or call 911 (if needed). Definitive disposition and diagnosis as appropriate pending reevaluation and review of above. right breast Pain Score (Numeric/FACES): 7 - Related Data Allergies Allergy/AdvReac Type Severity Reaction Status Date / Time No Known Allergies Allergy Verified 01/23/20 08:13 Home Meds: Home Meds Pnv No.95/Ferrous Fum/Folic AC [ Vitamin Tablet] 1 tab PO DAILY 01/23/20 [History] Acetaminophen/oxyCODONE [Percocet 325-5 MG] 1 tab PO Q4H PRN #15 tablet 02/01/20 [Rx] Ibuprofen [Motrin] 800 mg PO Q8H PRN #20 tablet 02/01/20 [Rx] Dicloxacillin 500 mg PO Q6HR 10 Days #40 cap 09/21/20 [Rx] Past Medical History - Past Health History Medical/Surgical History: Denies Medical/Surgical History HEENT History: Reports: None Cardiovascular History: Reports: None Respiratory History: Reports: None Gastrointestinal History: Reports: None Genitourinary History: Reports: None 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: Musculoskeletal History: Reports: None Neurological History: Reports: None Psychiatric History: Reports: None Endocrine/Metabolic History: Reports: Obesity/BMI 30+ Hematologic History: Reports: None Immunologic History: Reports: None Oncologic (Cancer) History: Reports: None Dermatologic History: Reports: None - Infectious Disease History Infectious Disease History: Reports: Chicken Pox - Past Surgical History Head Surgeries/Procedures: Reports: None HEENT Surgical History: Reports: None Cardiovascular Surgical History: Reports: None Respiratory Surgical History: Reports: None GI Surgical History: Reports: None Female Surgical History: Reports: Section Endocrine Surgical History: Reports: None Neurological Surgical History: Reports: None Musculoskeletal Surgical History: Reports: None Oncologic Surgical History: Reports: None Dermatological Surgical History: Reports: None Social & Family History - Tobacco Use Tobacco Use Status *Q: Never Tobacco User - Caffeine Use Caffeine Use: Reports: None - Recreational Drug Use Recreational Drug Use: No ED ROS GENERAL - Review of Systems Review Of Systems: Comprehensive ROS is negative, except as noted in HPI. ED EXAM, SKIN/RASH Exam: See Below (See dictation) Course - Vital Signs Last Recorded V/S: Last Vital Signs Temp 97.8 F 09/21/20 11:14 Pulse 107 H 09/21/20 11:14 Resp BP 123/73 09/21/20 11:14 Pulse Ox 95 09/21/20 11:14 Departure - Departure Time of Disposition: 11:55 Disposition: Home, Self-Care 01 Condition: Good Clinical Impression: Mastitis - Discharge Information *PRESCRIPTION DRUG MONITORING PROGRAM REVIEWED*: Not Applicable *COPY OF PRESCRIPTION DRUG MONITORING REPORT IN PATIENT NICOLAS: Not Applicable Prescriptions: Dicloxacillin 500 mg PO Q6HR 10 Days #40 cap Instructions: and Mastitis Referrals: PCP,None [Primary Care Provider] - Forms: ED Department Discharge Additional Instructions: The following information is given to patients seen in the emergency department who are being discharged to home. This information is to outline your options for follow-up care. We provide all patients seen in our emergency department with a follow-up referral. The need for follow-up, as well as the timing and circumstances, are variable depending upon the specifics of your emergency department visit. If you don't have a primary care physician on staff, we will provide you with a referral. We always advise you to contact your personal physician following an emergency department visit to inform them of the circumstance of the visit and for follow-up with them and/or the need for any referrals to a consulting specialist. The emergency department will also refer you to a specialist when appropriate. This referral assures that you have the opportunity for follow-up care with a specialist. All of these measure are taken in an effort to provide you with optimal care, which includes your follow-up. Under all circumstances we always encourage you to contact your private physician who remains a resource for coordinating your care. When calling for follow-up care, please make the office aware that this follow-up is from your recent emergency room visit. If for any reason you are refused follow-up, please contact the [facility] Emergency Department at and asked to speak to the emergency department charge nurse. [facility] [address] [place] [address] [facility] [address] [place] [address] Plan: 1. You were evaluated today on an emergent basis. Your complaints of right breast pain and redness was evaluated and found to be mastitis. Risk factors for mastitis typically result in prolonged engorgement or poor drainage. Such as, Partial blockage of milk duct; reduced drainage results in stagnant milk distal to the obstruction, Oversupply of milk, Infrequent feedings, Nipple excoriation or cracking, Rapid weaning, Illness in mother or baby, Maternal stress or excessive fatigue, Maternal malnutrition. The breast feeding Society guidelines recommend using a probiotic on a daily basis prevention. You can try breast massage and warm daily. Try working into your schedule. I am prescribing Dicloxacillin 500 mg every 6 hours for 10 days as this is the first line antibiotic for breast-feeding with safety in mind. 2. You can alternate Tylenol and ibuprofen as needed for pain and fever management. 3. We encourage you to follow up with your primary care provider and/or recommended specialist in the next few days for re-evaluation and further care/management. 4. If your symptoms should worsen, new symptoms develop or any of the signs and symptoms we discussed should arise please return to the emergency room or call 911 (if needed). Sepsis Event Note (ED) - Evaluation Sepsis Screening Result: No Definite Risk - Focused Exam Vital Signs: Vital Signs Temp Pulse BP Pulse Ox 09/21/20 11:14 97.8 F 107 H 123/73 95
[2020-09-21 18:23] VITALS: BP 121/70; PULSE 102
== END 2020-09-21 12:05 | disposition home or self-care (01) ==
LOC: MW.ED 10:54
DX: N61.0 Mastitis without abscess (principal); E66.9 Obesity, unspecified; Z68.29 Body mass index [BMI] 29.0-29.9, adult
CPT/HCPCS: 99283